=== PATIENT | male | born 1995 | race Caucasian/White ===

== ENCOUNTER 2018-10-07 20:26 | Inpatient (IN) | payer BC, OTHER ==
[2018-10-07 22:20] LABS: Amphetamine Screen,Urine Not Detected (NotDetected); Barbiturate Screen,Urine Not Detected (NotDetected); Benzodiazepines Screen,Urine Not Detected (NotDetected); Cocaine Screen,Urine Not Detected (NotDetected); Methadone Screen, Urine Not Detected (NotDetected); Opiate Screen,Urine Not Detected (NotDetected); Oxycodone Screen, Urine Not Detected (NotDetected); Phencyclidine Screen,Urine Not Detected (NotDetected); Tricyclic Antidepressant,Urine Not Detected (NotDetected); Urn Cannabinoid Scrn Detected (NotDetected)
--- NOTE | 2018-10-07 23:32 | ED ---
Psych HPI - General Chief Complaint: Psychiatric Symptoms Stated Complaint: Suicidal Time Seen by Provider: 10/07/18 21:05 Source: patient Mode of arrival: ambulatory - History of Present Illness Initial Comments: Patient is 23-year-old man with history of suicidal ideation and depressed mood who is brought for psychiatric evaluation after he had made suicidal statements. The patient admits to making statements indicating suicidality. States that this been going on for a long time getting worse recently. MD Complaint: suicidal ideation, feels depressed -: month(s) Associated Psychiatric Symptoms: depression, suicidal ideation History of same: Yes Quality: getting worse Improves With: none Worsens With: none If Self Harm: admits thoughts of self harm - Related Data Home Medications Medication Instructions Recorded Confirmed Naproxen Sod/Diphenhydramine 2 tab PO HS 10/07/18 10/07/18 [Aleve Pm Caplet] Allergies Allergy/AdvReac Type Severity Reaction Status Date / Time No Known Allergies Allergy Verified 10/07/18 21:45 Review of Systems ROS Statement: Those systems with pertinent positive or pertinent negative responses have been documented in the HPI. ROS Other: All systems not noted in ROS Statement are negative. Constitutional: Denies: fever, chills Respiratory: Denies: cough, dyspnea Cardiovascular: Denies: chest pain, palpitations Gastrointestinal: Denies: abdominal pain, vomiting, diarrhea Musculoskeletal: Denies: back pain Skin: Denies: rash Neurological: Denies: headache, weakness, numbness Psychiatric: Reports: depression, suicidal thoughts. Denies: auditory hallucinations, visual hallucinations, homicidal thoughts Past Medical History Past Medical History: No Reported History History of Any Multi-Drug Resistant Organisms: MRSA Date of last positivie culture/infection: uk MDRO Source:: [facility] Past Surgical History: Ear Surgery Past Psychological History: Depression Smoking Status: Never smoker Past Alcohol Use History: None Reported Past Drug Use History: None Reported General Exam Limitations: no limitations General appearance: alert, in no apparent distress Head exam: Present: atraumatic, normocephalic Eye exam: Present: normal appearance Respiratory exam: Present: normal lung sounds bilaterally. Absent: respiratory distress, wheezes, rales, rhonchi, stridor Cardiovascular Exam: Present: regular rate, normal rhythm, normal heart sounds. Absent: systolic murmur, diastolic murmur, rubs, gallop GI/Abdominal exam: Present: soft. Absent: distended, tenderness, guarding, rebound, rigid, mass Extremities exam: Present: normal inspection, normal capillary refill. Absent: pedal edema, calf tenderness Back exam: Present: normal inspection. Absent: CVA tenderness (R), CVA tenderness (L) Neurological exam: Present: alert Psychiatric exam: Present: depressed, suicidal ideation. Absent: agitated, anxious, manic, homicidal ideation Skin exam: Present: warm, dry, intact, normal color. Absent: rash Course Vital Signs 10/07/18 10/07/18 20:46 23:24 Temperature 98.6 F 98.3 F Pulse Rate 116 H 93 Respiratory 18 16 Rate Blood Pressure 127/75 123/62 O2 Sat by Pulse 98 97 Oximetry Medical Decision Making - Medical Decision Making Patient is seen by behavioral health and after staffing with the psychiatrist they will admit the patient for further evaluation and treatment. - Lab Data Lab Results 10/07/18 Range/Units 20:57 Urine Opiates Screen Not Detected (NotDetected) Ur Oxycodone Screen Not Detected (NotDetected) Urine Methadone Screen Not Detected (NotDetected) Ur Propoxyphene Screen Not Detected (NotDetected) Ur Barbiturates Screen Not Detected (NotDetected) U Tricyclic Antidepress Not Detected (NotDetected) Ur Phencyclidine Scrn Not Detected (NotDetected) Ur Amphetamines Screen Not Detected (NotDetected) U Methamphetamines Scrn Not Detected (NotDetected) U Benzodiazepines Scrn Not Detected (NotDetected) Urine Cocaine Screen Not Detected (NotDetected) U Marijuana (THC) Screen Detected H (NotDetected) - EKG Data -: EKG Interpreted by Md EKG shows normal: sinus rhythm, axis, intervals, QRS complexes, ST-T waves Rate: normal (Rate 84 bpm) Interpretation: normal EKG Disposition Clinical Impression: Suicidal ideation, Mood disorder Disposition: TRANSFER TO PSYCH HOSP/UNIT Condition: Serious Is patient prescribed a controlled substance at d/c from ED?: No
[2018-10-07] MEDS ORDERED: ACETAMINOPHEN TAB 325 MG TAB PO PRN (23:57)
[2018-10-08 00:35] VITALS: BMI 39.9
[2018-10-08] MEDS ORDERED: ZIPRASIDONE 20 MG VIAL IM PRN (01:00)
[2018-10-08] MEDS ORDERED: MAGNESIUM HYDROXIDE 2,400 MG/10 ML CUP PO PRN (01:00)
[2018-10-08] MEDS ORDERED: LORazepam 1 MG TAB PO PRN (01:00)
[2018-10-08] MEDS ORDERED: MAG HYDROX/AL HYDROX/SIMETH 30 ML CUP PO PRN (01:00)
[2018-10-08] MEDS: buPROPion XL 150 MG TAB.ER.24H PO SCH (09:48)
[2018-10-08 09:58] LABS: Basophils % (A) 0 %; Eosinophils # (A) 0.2 k/uL (0-0.7); Eosinophils % (A) 2 %; HCT 41.3 % (39.0-53.0); HGB 14.4 gm/dL (13.0-17.5); Lymphocytes # (A) 1.6 k/uL (1.0-4.8); Lymphocytes % (A) 20 %; MCH 28.9 pg (25.0-35.0); MCHC 34.7 g/dL (31.0-37.0); MCV 83.2 fL (80.0-100.0); Mean Platelet Volume 7.1; Monocytes # (A) 0.4 k/uL (0-1.0); Monocytes % (A) 5 %; Neutrophils # (A) 5.5 k/uL (1.3-7.7); Neutrophils % (A) 71 %; Platelet Count 248 k/uL (150-450); RBC 4.97 m/uL (4.30-5.90); RDW 14.4 % (11.5-15.5); WBC 7.7 k/uL (3.8-10.6)
[2018-10-08 10:12] LABS: ALT 50 U/L (21-72); AST 25 U/L (17-59); Albumin 4.4 g/dL (3.5-5.0); Alkaline Phosphatase 49 U/L (38-126); Anion Gap 7 mmol/L; Blood Urea Nitrogen 12 mg/dL (9-20); Calcium 9.7 mg/dL (8.4-10.2); Carbon Dioxide 31 mmol/L (22-30); Chloride 103 mmol/L (98-107); Cholesterol 165 mg/dL (<200); Glucose 72 mg/dL (74-99); HDL Cholesterol 62 mg/dL (40-60); LDL Cholesterol,Calculated 74 mg/dL (0-99); Potassium 4.2 mmol/L (3.5-5.1); Sodium 141 mmol/L (137-145); Total Bilirubin 0.8 mg/dL (0.2-1.3); Total Protein 7.1 g/dL (6.3-8.2); Triglycerides 144 mg/dL (<150)
--- NOTE | 2018-10-08 20:04 | P.HP ---
Psychiatric H&P - . H&P Date: 10/08/18 History & Physical: Allergies Allergy/AdvReac Type Severity Reaction Status Date / Time No Known Allergies Allergy Verified 10/08/18 00:10 Vital Signs Temp 97.5 F L 10/08/18 00:28 Pulse 93 10/08/18 00:28 Resp 16 10/08/18 00:28 BP 142/70 10/08/18 00:28 Pulse Ox 97 10/07/18 23:24 Intake & Output 10/08/18 10/08/18 10/09/18 06:59 18:59 06:59 Weight 136.078 kg Laboratory Last Values WBC 7.7 k/uL (3.8-10.6) 10/08/18 09:37 RBC 4.97 m/uL (4.30-5.90) 10/08/18 09:37 Hgb 14.4 gm/dL (13.0-17.5) 10/08/18 09:37 Hct 41.3 % (39.0-53.0) 10/08/18 09:37 MCV 83.2 fL (80.0-100.0) 10/08/18 09:37 MCH 28.9 pg (25.0-35.0) 10/08/18 09:37 MCHC 34.7 g/dL (31.0-37.0) 10/08/18 09:37 RDW 14.4 % (11.5-15.5) 10/08/18 09:37 Plt Count 248 k/uL (150-450) 10/08/18 09:37 Neutrophils % 71 % 10/08/18 09:37 Lymphocytes % 20 % 10/08/18 09:37 Monocytes % 5 % 10/08/18 09:37 Eosinophils % 2 % 10/08/18 09:37 Basophils % 0 % 10/08/18 09:37 Neutrophils # 5.5 k/uL (1.3-7.7) 10/08/18 09:37 Lymphocytes # 1.6 k/uL (1.0-4.8) 10/08/18 09:37 Monocytes # 0.4 k/uL (0-1.0) 10/08/18 09:37 Eosinophils # 0.2 k/uL (0-0.7) 10/08/18 09:37 Basophils # 0.0 k/uL (0-0.2) 10/08/18 09:37 Sodium 141 mmol/L (137-145) 10/08/18 09:37 Potassium 4.2 mmol/L (3.5-5.1) 10/08/18 09:37 Chloride 103 mmol/L (98-107) 10/08/18 09:37 Carbon Dioxide 31 mmol/L (22-30) H 10/08/18 09:37 Anion Gap 7 mmol/L 10/08/18 09:37 BUN 12 mg/dL (9-20) 10/08/18 09:37 Creatinine 0.81 mg/dL (0.66-1.25) 10/08/18 09:37 Est GFR (CKD-EPI)AfAm >90 (>60 ml/min/1.73 sqM) 10/08/18 09:37 Est GFR (CKD-EPI)NonAf >90 (>60 ml/min/1.73 sqM) 10/08/18 09:37 Glucose 72 mg/dL (74-99) L 10/08/18 09:[address] Glu mg/dL 97 10/08/18 09:37 Hemoglobin A1c 5.0 % (4.0-6.0) 10/08/18 09:37 Calcium 9.7 mg/dL (8.4-10.2) 10/08/18 09:37 Total Bilirubin 0.8 mg/dL (0.2-1.3) 10/08/18 09:37 AST 25 U/L (17-59) 10/08/18 09:37 ALT 50 U/L (21-72) 10/08/18 09:37 Alkaline Phosphatase 49 U/L (38-126) 10/08/18 09:37 Total Protein 7.1 g/dL (6.3-8.2) 10/08/18 09:37 Albumin 4.4 g/dL (3.5-5.0) 10/08/18 09:37 Triglycerides 144 mg/dL (<150) 10/08/18 09:37 Cholesterol 165 mg/dL (<200) 10/08/18 09:37 LDL Cholesterol, Calc 74 mg/dL (0-99) 10/08/18 09:37 HDL Cholesterol 62 mg/dL (40-60) H 10/08/18 09:37 TSH 1.680 mIU/L (0.465-4.680) 10/08/18 09:37 Urine Opiates Screen Not Detected (NotDetected) 10/07/18 20:57 Ur Oxycodone Screen Not Detected (NotDetected) 10/07/18 20:57 Urine Methadone Screen Not Detected (NotDetected) 10/07/18 20:57 Ur Propoxyphene Screen Not Detected (NotDetected) 10/07/18 20:57 Ur Barbiturates Screen Not Detected (NotDetected) 10/07/18 20:57 U Tricyclic Antidepress Not Detected (NotDetected) 10/07/18 20:57 Ur Phencyclidine Scrn Not Detected (NotDetected) 10/07/18 20:57 Ur Amphetamines Screen Not Detected (NotDetected) 10/07/18 20:57 U Methamphetamines Scrn Not Detected (NotDetected) 10/07/18 20:57 U Benzodiazepines Scrn Not Detected (NotDetected) 10/07/18 20:57 Urine Cocaine Screen Not Detected (NotDetected) 10/07/18 20:57 U Marijuana (THC) Screen Detected (NotDetected) H 10/07/18 20:57 10/08/18 20:03 Chief complaint Suicidal thoughts for two months. History of presenting illness Patient claims to have overdosed on 200 pills of night time aleve yesterday night. He also reports to have cut his arm with razor blade yesterday night, He has several superficial scratches on his left arm. . He claims to have texted his friend about it who then called police and was brought to the ER. He reports being non compliant with psychiatric treatment. He states his suicidal ideations worsen when ever his depression flares up. He states his recent stressors are his mother dying and feels sad. He reports his mother has pulmonary hypertension and is in need of bilateral lung transplantation. He says his mother will not be able to get lung transplantation before she dies. He reports to have given two weeks notice into his work and is planning to move in with his parents who live in [place], [place]. He reports feeling anxious and hopeless. He denies history of auditory or visual hallucinations., He denies paranoid ideations. He denies symptoms of tamara. Past psychiatric history Reports problems with depression, tendencies to overdose and self mutilate from the age of 17. He reports two psychiatric hospitalizations one in 2016 at [facility] and second one in 2017 at [facility] due to depression and suicidal ideations. He reports seeing therapist and the psychiatrist on and off at [facility] . He states it too expensive for him to maintain his appointments. He reports to have tried on various medications which did not help him and ther efore stopped taking them. He reports to have been prescribed Zoloft, Prozac, trazadone, abilify and effexor. Substance use history Reports occasional use of marijuana and alcohol. His last drink was yesterday night. Last use of marijuana was three weeks ago. Denies rehab treatment. Legal problems none reported. Family psychiatric treatment history denies Medical history None reported Social history Born in [place], raised by both parents. Denies history of abuse. Has one sister. Completed 12th grade. He is single, no children. Lives alone and worked at [employer]. Mental status exam 23 year old obese male. He appears older than his stated age in fair grooming and hygiene. He maintins good eye contact. No abnormal movements noted. His speech and thought process are linear and goal directed. His mood is reported as sad and affect constricted. He denies auditory or visual hallucinations. Denies paranoid ideations. The patient is alert and oriented 4 and in no apparent distress. Denies suicidal or homicidal ideation. insight and judgment are limited. Diagnosis Major depression recurrent moderate type. Plan 23-year-old male admitted through emergency department for suicidal ideations. He signed voluntary treatment consent. Medicine consult for history and physical examination psychosocial evaluation. After discussing benefits and risks of medications he has agreed to take wellbutrin and buspar Will start him on wellbutrin xl 150mg po qday for depression and buspar 5mg pot id for anxiety. Continue PRN medications for agitation and anxiety Monitor for symptoms will receive milieu therapy group therapy individual therapy occupational therapy recreational therapy and medication education. Discharge with outpatient follow-up. Treatment goals: Medication stabilization of depression Insight improvement and encourage treatment adherence,and development of better coping skills will continue to be free of suicide thoughts and behavior.
[2018-10-08] MEDS: busPIRone HCl 5 MG TAB PO SCH (22:44)
--- NOTE | 2018-10-08 23:28 | CONS ---
CONSULTATION DATE OF SERVICE: 10/08/2018. REASON FOR CONSULTATION: Medical management, requested by . CONSULTATION: This is a 23-year-old patient of Dr. Ag who has had depression since age of 17. He has had 2 prior hospitalizations. 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 The patient found out his mother is dying from pulmonary fibrosis. Lung transplantation will be available. He has given 2 weeks noticed to his work, plans to move to [place]. The patient has become more depressed and suicidal and decided to text his friend and got admitted to the hospital. Made some superficial cuts on his wrist. REVIEW OF SYSTEMS: CONSTITUTIONAL: None CARDIOVASCULAR: None. RESPIRATORY: None. CARDIOVASCULAR: None. GASTROINTESTINAL: None. GENITOURINARY: None. MUSCULOSKELETAL: None. DERMATOLOGICAL: Superficial cut on the wrist. HEMATOLOGIC, LYMPHATIC: None. PSYCHIATRY: As above. NEUROLOGICAL: None. PAST MEDICAL HISTORY: Depression. SURGICAL HISTORY: Ear surgery, tonsillectomy. SOCIAL HISTORY: Smokes marijuana occasionally. Alcohol occasionally. 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 Lives alone. FAMILY HISTORY: Mother has pulmonary hypertension. HOME MEDICATIONS: Naproxen. ALLERGIES: None. PHYSICAL EXAMINATION: Afebrile, pulse 93, respiration 16, blood pressure 142/70, pulse ox 97% on room air. GENERAL APPEARANCE: Well built. BMI 39.6, sitting up comfortable. EYES: Pupils equal. Conjunctivae normal. HEENT: External appearance of nose and ears normal. Oral cavity normal. NECK: JVD not raised. Mass not palpable. Respiratory effort normal. LUNGS: Clear. CARDIOVASCULAR: 1st and 2nd heart sounds normal. No edema. ABDOMEN: Soft, nontender. Liver and spleen not palpable. LYMPHATIC: No lymph nodes palpable in the neck and axilla. PSYCHIATRY: Alert and oriented x3. Mood and affect normal x3. NEUROLOGICAL: Alert and oriented x3. PSYCHIATRY: Mood and affect a bit low appearing. NEUROLOGICAL: Pupils equal. Cranial nerves grossly intact. Power and sensation grossly intact. INVESTIGATIONS: White count 7.7, hemoglobin 14.4, potassium 4.2. TSH is normal. Urine drug screen positive for marijuana. ASSESSMENT: 1. Obesity BMI 39.6. 2. Marijuana use occasional. 3. Superficial abrasions to the wrist from a sharp object. 4. Major depression, recurrent. PLAN: I had a very lengthy talk about lifestyle changes and measures. Of course he is concerned about his dying mother. I told him about several activities to do including mindfulness and type 2 health. Feels strong about himself. Total of about 30 minutes was spent with over 20-25 minutes of discussion. Thank you . ALEXYS / CHANELN: [id number] /
[2018-10-09] MEDS: buPROPion XL 150 MG TAB.ER.24H PO SCH (09:15)
[2018-10-09] MEDS: busPIRone HCl 5 MG TAB PO SCH ×3 (09:16→22:22)
--- NOTE | 2018-10-09 19:30 | P.PN ---
Progress Note - Text Progress Note Date: 10/09/18 IDENTIFICATION DATA: 23-year-old male admitted through emergency department for suicidal ideations. INTERVAL HISTORY: He reports feeling sad, hopeless. He rates his depression as 7/10, 10 being worst. He says he has always been depressed and does not feel comfortable being in the hospital and states it is waste of time and money being in the hospital. He reports ongoing suicidal ideations with out any active plan or intent. He says he would be better being at home rather than in the hospital. He says he is anxious to get back to his parents home and says they will watch him atleast for few days . He reports no motivation. He claims to have attended few groups today and claims to have taken a nap late in the afternoon. He reports good sleep and appetite. MENTAL STATUS EXAMINATION: Patient appears older than his stated age in fair and hygiene. maintains good eye contact. No abnormal movements noted. speech and thought process are slow and goal directed. mood is reported as sad, affect constricted . Denies current auditory and visual hallucinations. denies paranoid ideations. The patient is alert and oriented 4. Reports ongoing suicidal ideations with no active plan. Denies homicidal ideation. insight and judgment are limited. ASSESSMENT Major depression recurrent moderate type. PLAN: Will increase the dose of Wellbutrin to 300mg po daily. Continue buspar.
[2018-10-10] MEDS: busPIRone HCl 5 MG TAB PO SCH ×3 (08:35→20:11)
[2018-10-10] MEDS ORDERED: buPROPion XL 300 MG TAB.ER.24H PO SCH (09:00)
--- NOTE | 2018-10-10 14:46 | P.PN ---
Progress Note - Text Progress Note Date: 10/10/18 Interval History: Patient is a 23-year-old male who is admitted for suicidal thoughts, states that he has been taking overdoses of nighttime Advil since March and was hospitalized in April 2018 in [place] where he was placed on Abilify and Effexor. He states that after discharge he continued to feel suicidal stating to me that he has suicidal thoughts constantly and that even with adjustments in the doses of Abilify and Effexor he felt no better. Patient states that he's been on multiple trials of antidepressants in the past with no change in his symptoms. Patient states that he feels suicidal all the time, states that he does want to and states that being here in the hospital is a waste of time and money as he will not get any better. Upon further history the patient does also report periods where he does feel slightly better having more energy but is unable to report manic symptoms. Patient states that he has a supportive family at home, does not notice that his symptoms have worsened on antidepressants but reports no improvement in his symptoms with multiple trials of SSRIs, Effexor and now Wellbutrin. Mental Status: Appearance/Attitude: Patient is neatly and appropriately dressed, makes good eye contact and was cooperative. Behavior: Patient does not exhibit any psychomotor agitation or retardation. Speech/Language: Patient's speech is spontaneous of normal volume and rhythm and he is coherent. Thought Process: Patient is goal-directed there is no evidence of loose association or flight of ideas Thought Content: Patient denies any auditory or visual hallucinations no delusions or paranoid ideation were elicited. Patient reports that he continues to feel suicidal, feeling depressed does not describe feeling agitated and states that nothing really has made any difference. Patient states that he sees no sense and staying in the hospital because prior hospitalizations in different trials of medications have made little to no change in his symptoms. Suicidal/Homicidal Ideation: Patient reports having almost constant suicidal thoughts, states that he does want to but has no active plan or intent at this time. Patient denies any current homicidal ideation Sensorium/Cognition: Patient is alert and oriented to person, place, and time and his recent and remote memory are grossly intact. Mood/Affect: Patient's mood is depressed and his affect is blunted Insight/Judgment: Patient's insight and judgment are fair Assessment: Patient and I discussed multiple trials of medications that he has been on in the past his most recent being Abilify and Effexor, he states there is been little benefit and his depression and suicidal thoughts have not been altered at all. He states that therapy has also not been helpful. Patient states as the Abilify and Effexor were increased and the doses adjusted after his admission in April 2018 he saw no change in his mood or suicidal thoughts. Patient states that he's been off the medications for months when he ran out. Patient states that he has been taking overdoses of nighttime Advil on and off since March of last year. Patient reports that he doesn't see any benefit to being in the hospital. He was able to describe some periods of time in the past where he has had more energy and has felt slightly better but he says these are brief and not long lasting. Patient was not able to endorse full-blown manic symptoms. Plan: Patient and I discussed possibly changing his diagnosis to bipolar type II disorder and considering changing his medication strategy. We discussed that a trial of a mood stabilizer without an antidepressant specifically the more activating ones may be of benefit. Patient was agreeable to this plan and will discontinue his Wellbutrin and restart Abilify at 10 mg at bedtime. Patient and I discussed the need for inpatient hospitalization to see if this new treatment plan would be of benefit as the patient is verbalizing his wish to be discharged as he sees inpatient as a waste of time. Patient continues to require hospitalization due to his active suicidal thoughts and to stabilize his mood.
[2018-10-10] MEDS: ARIPiprazole 10 MG TAB PO SCH (20:11)
[2018-10-11] MEDS: busPIRone HCl 5 MG TAB PO SCH ×3 (08:21→21:33)
--- NOTE | 2018-10-11 14:10 | P.PN ---
Progress Note - Text Progress Note Date: 10/11/18 Interval History: Patient is a 23-year-old male who is admitted for suicidal ideation and depression. Patient was seen today and he reports that he continues to feel the same, stating that he didn't sleep well last night. He states that he continues to have suicidal thoughts but no plans to act while he is here. He states that when he is out of the hospital he has a mantra that he tells himself that he needs to and considers ways to do so. He states that he plans on living with his parents once he is discharged for a period of time and states that he has no regrets about his attempted suicides in the past. He states that there is nothing that prevents him from acting on his suicidal thoughts when he is outside of the hospital. He states that he regrets he's been unsuccessful in his prior overdose attempts. Patient continues to voice his opinion that being in the hospital is a waste of money and time and that it will not be of any help and that his bill is continuing to increase as his pain decreases and there will be any change in his symptoms. Mental Status: Appearance/Attitude: Patient is appropriately dressed and makes intermittent eye contact and was cooperative. Behavior: Patient does not display any psychomotor agitation or retardation. Speech/Language: Patient's speech is spontaneous of normal volume and rhythm and he is coherent Thought Process: Patient is goal-directed there is no evidence of loose association or flight of ideas Thought Content: Patient denies any auditory or visual hallucinations and no delusions or paranoid ideation were elicited. Patient continues to voice that he is feeling suicidal stating that he has no plans while he was here but that once he is out of the hospital he would act on them. Patient states that there is no reason for him to not act on his suicidal thoughts stating that he knows that his parents would be hurt by this. He has no regrets about acting on them. Patient does regret the fact that his prior suicide attempts by overdose of been unsuccessful. Patient continues to remain negative about his stay in the hospital feeling it is a waste of time and money and there will be any change. Suicidal/Homicidal Ideation: Patient states he continues to have suicidal ideation while he is here but has no plans to act while he is in the hospital, stating that one of 2 things will happen when he is discharged he will go and live with his parents or he'll go live with his parents and attempt suicide, patient denies any current homicidal ideation. Sensorium/Cognition: Patient is alert and oriented to person, place, and time and his recent and remote memory are grossly intact Mood/Affect: Patient's mood remains depressed and his affect is appropriate to his mood Insight/Judgment: Patient's insight and judgment are fair Assessment: Patient continues to voice his concern that this hospital stay as a waste of time and money, he sees that no change to his medications will make any change in his mood or suicidal thoughts. Patient states that he continues to have suicidal ideation but has no plans to act on them all he is in the hospital but states that once he is discharged he probably will go back to attempting to overdose and states that he regrets having been unsuccessful in the past. Shayan hawkins does attend groups and activities. He states that he didn't sleep well last night. He is not reporting any side effects from the Abilify. Plan: Patient will continue on Abilify 10 mg at bedtime and was encouraged to remain in the hospital to assess his response, patient was encouraged to have a more positive outlook however he continues to state that it is a waste of time to be in the hospital as well as money. Patient continues to require hospitalization to target his suicidal ideation and depression.
[2018-10-11] MEDS: ARIPiprazole 10 MG TAB PO SCH (21:34)
[2018-10-12] MEDS: busPIRone HCl 5 MG TAB PO SCH ×3 (08:10→21:00)
--- NOTE | 2018-10-12 12:51 | P.PN ---
Progress Note - Text Progress Note Date: 10/12/18 Interval History: Patient is a 23-year-old male who was seen today who reports that he continues to feel the same, continues to have suicidal thoughts but no current plan or intent to act on them. We discussed what his plans were after release from the hospital and he states that he will now move permanently up to live with his parents in [facility]. He states that he has weapons at home, and will have his father removed and secure them. Patient states that he wants to go live with his parents to assist in helping his mother who has pulmonary hypertension and is awaiting a transplant. Patient states that he feels the Abilify has not been of any benefit to date. Patient states that he had very few friends here and felt more isolative and has extended family on his father's side in [place] and feels that that would be a more supportive living environment for him. Patient states that he would get his medications to his parents to control and give to him. Mental Status: Appearance/Attitude: Patient is appropriately neatly dressed, makes eye contact and was cooperative. Behavior: Patient did not display any psychomotor agitation or retardation. Speech/Language: Patient's speech was spontaneous of normal volume and rhythm and he was coherent. Thought Process: Patient was goal-directed there is no evidence of loose associations or flight of ideas Thought Content: Patient denies any auditory or visual hallucination and no delusions or paranoid ideation were elicited. Patient states that he continues to feel depressed, states he continues to have suicidal thoughts but has no plans to act on them while in the hospital. Patient discussed his discharge plans today which are to live permanently with his parents, stating that it is a more supportive environment there with extended family members. Patient states that he will have his father remove all weapons and secure them that the patient currently has in his apartment. Patient states that he will also get his drugs to his parents to distribute to him. Patient stated that he will try to not act on his suicidal thoughts as he wants to assist in caring for his mother who has pulmonary hypertension and is waiting a lung transplant. Suicidal/Homicidal Ideation: Patient continues to report suicidal ideation with no current plan or intent to act and no current homicidal ideation Sensorium/Cognition: Patient is alert and oriented to person, place, and time and his recent and remote memory are grossly intact Mood/Affect: Patient's mood remains depressed and his affect is appropriate to his mood Insight/Judgment: Patient's insight and judgment are fair Assessment: Patient continues to report having chronic suicidal ideation but no current plan to act and states he continues to feel sad and depressed but is made different discharge plans planning now to live with his parents on a permanent basis, helping caring for his mother who is awaiting a lung transplant, he states that he will have his father secured the weapons that he owns at home as well as give his parents control over his medication. Patient states that he will try not to act on his suicidal thoughts as he wants to assist in caring for his mother. Patient states she is having any side effects from the medication and has been attending groups and activities. Plan: Patient will continue on Abilify 10 mg at bedtime to target his mood. Patient and I discussed his discharge plans and need to arrange aftercare in [facility] as well as to have his father secured weapons and I also suggested that the patient not spend a night here after his father returns to [place] with his belongings before his father to stay with the patient here and they both return to [place] together. We will tentatively plan for patient's discharge on Wednesday if appropriate after care can be arranged as well as his father can come to the area to assist the patient in his move.
[2018-10-12] MEDS: ARIPiprazole 10 MG TAB PO SCH (21:00)
[2018-10-12 21:34] LABS: Appearance,Urine Clear (Clear); Bilirubin,Urine Negative (Negative); Blood,Urine Negative (Negative); Color,Urine Light Yellow; Glucose,Urine (UA) Negative (Negative); Ketones,Urine Negative (Negative); Leukocyte Esterase,Urine Negative (Negative); Nitrite,Urine Negative (Negative); PH, Urine 6.5 (5.0-8.0); Protein,Urine Negative (Negative); Specific Gravity,Urine 1.018 (1.001-1.035); Urobilinogen,Urine <2.0 mg/dL (<2.0)
[2018-10-13 06:33] VITALS: RESP 16
[2018-10-13] MEDS: busPIRone HCl 5 MG TAB PO SCH ×3 (08:20→22:02)
--- NOTE | 2018-10-13 15:26 | P.PN ---
Progress Note - Text Progress Note Date: 10/13/18 Interval History: Patient is a 23-year-old male who was seen today who reports that his suicidal thoughts are slow but less intense, he states that they're still there and he is not sure why they are less intense today. Patient states that he spoken with his sister and father and his sister will stay with him after discharge while he waits his father coming down to help him move his things to [place]. Patient reports that he has been sleeping well and his appetite is good and reports no side effects from the medication. Patient feels positive about the move to [place] and living with his parents because he feels he will have a better support system. Mental Status: Appearance/Attitude: Patient is neatly and appropriately dressed and makes good eye contact and was cooperative. Behavior: Patient does not display any psychomotor agitation or retardation. Speech/Language: Patient's speech is spontaneous of normal volume and rhythm and he is coherent. Thought Process: Patient is goal-directed there is no evidence of loose association or flight of ideas Thought Content: Patient denies any auditory or visual hallucinations and no delusions or paranoid ideation were elicited. Patient states that he's feeling slightly better today be suicidal thoughts are less intense states he is uncertain why that is the case but states that he has plans to have his sister stay with him the first night he is out of the hospital and then he his sister and his father will move him to [place]. Patient is eating and sleeping well and reports no side effects. Suicidal/Homicidal Ideation: Patient states that the suicidal thoughts are less intense today although still bear with no plan or intent to act at this time and no current homicidal ideation Sensorium/Cognition: Patient is alert and oriented to person, place, and time and his recent and remote memory are grossly intact Mood/Affect: Patient's mood remains depressed and his affect appropriate to his mood Insight/Judgment: Patient's insight and judgment are fair Assessment: Patient states that his suicidal thoughts are less intense today he is uncertain if it's due to the medication or due to his making arrangements to return to live with his parents. Patient states that he has been sleeping and eating well and has been attending groups and activities. He states he has spoken to his sister will stay with him after he is discharged from the hospital for the first night while he awaits his father's assistance in moving to [place]. Patient reports no side effects from the medication. Plan: Patient continues on Abilify 10 mg at bedtime to target his mood, discussed plans for discharge tomorrow, patient will follow-up in [place] and we discussed the need for him to have someone stay with him once he is discharged the first night and he was agreeable to arrange this with family members.
[2018-10-13] MEDS: ARIPiprazole 10 MG TAB PO SCH (22:02)
[2018-10-14 06:29] VITALS: BP 120/81; PULSE 70; TEMP 98
[2018-10-14] MEDS: busPIRone HCl 5 MG TAB PO SCH (08:14)
--- NOTE | 2018-10-14 11:50 | P.DS ---
Providers Date of admission: 10/07/18 23:24 Expected date of discharge: 10/14/18 Attending physician: Elvia Balderas MD Consults: 10/07/18 23:57 Consult Physician Routine Consulting Provider: Brandon Quinteros Consult Reason/Comments: H&P for mental health consult Do you want consulting provider notified?: Yes, Notify in am Primary care physician: Ivan [facility] Hospital Course: Discharge Diagnosis: Bipolar disorder type II current episode depressed Reason for Admission: Patient is a 23-year-old male who is admitted after overdosing on 200 pills of Aleve the day prior to admission, patient had also superficially cut his left arm. He was brought to the emergency room by police after detecting a friend and telling his friend what he had done. Patient had been noncompliant with his psychiatric treatment at [facility] stating that he was unable to afford going to keep his appointments. Patient had also not been taking his medication as prescribed. Patient states that his suicidal thoughts worsen when his depression worsens. Patient reports being under stress recently, his mother has pulmonary hypertension and is awaiting a bilateral lung transplant. He reports most likely will not occur. Patient had plans prior to his admission to stop working locally and moved to [facility] to live with his parents. Patient has a history of depression with tendencies to take overdoses as well as self mutilate since the age of 17. He has 2 prior psychiatric hospitalizations one in 2016 and one in 2018. Patient states that no medications and no admissions to psychiatric hospitals have ever been beneficial or changed his symptoms. He states that he has chronic suicidal thoughts, stating that he always feels depressed. 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 Hospital Course: Patient was admitted on a voluntary basis, placed on routine observation in group and activity therapy were ordered. Patient was also ordered routine laboratory studies as well as a medical consultation was obtained. Patient was started on Wellbutrin at 150 mg a day increased to 300 mg a day, and continue BuSpar 5 mg 3 times a day. Patient continued to express suicidal thoughts, feeling depressed but stated that he had no intent to act and no suicidal plans while he was on the unit. When I met with the patient he and I had a long discussion regarding his response to antidepressants in the past, response to antidepressants being augmented with antipsychotics and he reported that there would be a brief period where he would feel better but has never completely been in remission. Patient is able to give a history of some hypomanic symptoms and so we decided to try Abilify on its own. Patient states that he had been on Abilify combined with Effexor in the past and noticed no improvement in his symptoms. Patient was started on Abilify 10 mg at bedtime and continued on his BuSpar and the Wellbutrin was discontinued. Patient was attending groups and activities and appeared brighter than last several days on the unit, he also stated to me that his suicidal thoughts had decreased in frequency and he continued to report that he had no intent to act or no plans. Patient and I discussed his plans to move to [place] to live with his parents, stating that he has more extended family and a better support system there. Patient states that he is aware that he needs to be compliant with treatment and his medications. Patient will move to [place] to live with his parents on discharge, the guns that he owns will be removed from his apartment and secured by his sister, patient will follow-up with counseling and psychiatric care in [place]. Patient felt that he had improved on the Abilify with a slight decrease in his depression, a decrease in his suicidal ideation which she states is of a chronic constant nature. Patient expressed no active suicidal plan or intent to act and states that his mother's illness is a deterrent for for him to not act on his thoughts. Patient stated that his prior admissions to hospitals of been a waste of time and money as he felt that there is no change in his symptoms while admitted. Patient reported no side effects from the Abilify. It was felt that the patient had reached his maximum benefit from an inpatient hospital stay and was ready for discharge. Allergies No Known Allergies Allergy (Verified 10/08/18 00:10) Home Medications Medication Instructions Recorded Confirmed Naproxen Sod/Diphenhydramine 2 tab PO HS 10/07/18 10/07/18 [Aleve Pm Caplet] Laboratory Last Values WBC 7.7 k/uL (3.8-10.6) 10/08/18 09:37 RBC 4.97 m/uL (4.30-5.90) 10/08/18 09:37 Hgb 14.4 gm/dL (13.0-17.5) 10/08/18 09:37 Hct 41.3 % (39.0-53.0) 10/08/18 09:37 MCV 83.2 fL (80.0-100.0) 10/08/18 09:37 MCH 28.9 pg (25.0-35.0) 10/08/18 09:37 MCHC 34.7 g/dL (31.0-37.0) 10/08/18 09:37 RDW 14.4 % (11.5-15.5) 10/08/18 09:37 Plt Count 248 k/uL (150-450) 10/08/18 09:37 Neutrophils % 71 % 10/08/18 09:37 Lymphocytes % 20 % 10/08/18 09:37 Monocytes % 5 % 10/08/18 09:37 Eosinophils % 2 % 10/08/18 09:37 Basophils % 0 % 10/08/18 09:37 Neutrophils # 5.5 k/uL (1.3-7.7) 10/08/18 09:37 Lymphocytes # 1.6 k/uL (1.0-4.8) 10/08/18 09:37 Monocytes # 0.4 k/uL (0-1.0) 10/08/18 09:37 Eosinophils # 0.2 k/uL (0-0.7) 10/08/18 09:37 Basophils # 0.0 k/uL (0-0.2) 10/08/18 09:37 Sodium 141 mmol/L (137-145) 10/08/18 09:37 Potassium 4.2 mmol/L (3.5-5.1) 10/08/18 09:37 Chloride 103 mmol/L (98-107) 10/08/18 09:37 Carbon Dioxide 31 mmol/L (22-30) H 10/08/18 09:37 Anion Gap 7 mmol/L 10/08/18 09:37 BUN 12 mg/dL (9-20) 10/08/18 09:37 Creatinine 0.81 mg/dL (0.66-1.25) 10/08/18 09:37 Est GFR (CKD-EPI)AfAm >90 (>60 ml/min/1.73 sqM) 10/08/18 09:37 Est GFR (CKD-EPI)NonAf >90 (>60 ml/min/1.73 sqM) 10/08/18 09:37 Glucose 72 mg/dL (74-99) L 10/08/18 09:[address] Glu mg/dL 97 10/08/18 09:37 Hemoglobin A1c 5.0 % (4.0-6.0) 10/08/18 09:37 Calcium 9.7 mg/dL (8.4-10.2) 10/08/18 09:37 Total Bilirubin 0.8 mg/dL (0.2-1.3) 10/08/18 09:37 AST 25 U/L (17-59) 10/08/18 09:37 ALT 50 U/L (21-72) 10/08/18 09:37 Alkaline Phosphatase 49 U/L (38-126) 10/08/18 09:37 Total Protein 7.1 g/dL (6.3-8.2) 10/08/18 09:37 Albumin 4.4 g/dL (3.5-5.0) 10/08/18 09:37 Triglycerides 144 mg/dL (<150) 10/08/18 09:37 Cholesterol 165 mg/dL (<200) 10/08/18 09:37 LDL Cholesterol, Calc 74 mg/dL (0-99) 10/08/18 09:37 HDL Cholesterol 62 mg/dL (40-60) H 10/08/18 09:37 TSH 1.680 mIU/L (0.465-4.680) 10/08/18 09:37 Urine Color Light Yellow 10/12/18 18:46 Urine Appearance Clear (Clear) 10/12/18 18:46 Urine pH 6.5 (5.0-8.0) 10/12/18 18:46 Ur Specific [place] 1.018 (1.001-1.035) 10/12/18 18:46 Urine Protein Negative (Negative) 10/12/18 18:46 Urine Glucose (UA) Negative (Negative) 10/12/18 18:46 Urine Ketones Negative (Negative) 10/12/18 18:46 Urine Blood Negative (Negative) 10/12/18 18:46 Urine Nitrite Negative (Negative) 10/12/18 18:46 Urine Bilirubin Negative (Negative) 10/12/18 18:46 Urine Urobilinogen <2.0 mg/dL (<2.0) 10/12/18 18:46 Ur Leukocyte Esterase Negative (Negative) 10/12/18 18:46 Urine Opiates Screen Not Detected (NotDetected) 10/07/18 20:57 Ur Oxycodone Screen Not Detected (NotDetected) 10/07/18 20:57 Urine Methadone Screen Not Detected (NotDetected) 10/07/18 20:57 Ur Propoxyphene Screen Not Detected (NotDetected) 10/07/18 20:57 Ur Barbiturates Screen Not Detected (NotDetected) 10/07/18 20:57 U Tricyclic Antidepress Not Detected (NotDetected) 10/07/18 20:57 Ur Phencyclidine Scrn Not Detected (NotDetected) 10/07/18 20:57 Ur Amphetamines Screen Not Detected (NotDetected) 10/07/18 20:57 U Methamphetamines Scrn Not Detected (NotDetected) 10/07/18 20:57 U Benzodiazepines Scrn Not Detected (NotDetected) 10/07/18 20:57 Urine Cocaine Screen Not Detected (NotDetected) 10/07/18 20:57 U Marijuana (THC) Screen Detected (NotDetected) H 10/07/18 20:57 Discharge Mental Status: Appearance/Attitude: Patient is neatly and appropriately dressed, makes eye contact and is cooperative. Behavior: Patient does not exhibit any psychomotor agitation or retardation. Speech/Language: Patient's speech is spontaneous and normal volume and rhythm and he is coherent Thought Process: Patient is goal-directed there is no evidence of loose association or flight of ideas Thought Content: Patient denies any auditory visual hallucinations no delusions or paranoid ideation were elicited. Patient I had a long talk regarding his negative outlook, his need to follow-up with counseling after discharge, we discussed exercise and better nutrition. Patient states that he is more hopeful and returning to live with his parents as he will have more supportive living situation, he states that his appetite is good and he has been sleeping fairly well. Suicidal/Homicidal Ideation: Patient states that his suicidal thoughts are less intense and frequent and he denies any current plans or intent to act and no current homicidal ideation Sensorium/Cognition: Patient is alert and oriented to person, place, and time and his recent and remote memory are grossly intact Mood/Affect: Patient's mood is less depressed and his affect is appropriate to his mood Insight/Judgment: Patient's insight and judgment are fair Discharge Plan: Patient will be discharged and will be living with his parents in [facility], his sister will remove the guns from his home and secure them. Patient will continue on Abilify 10 mg at bedtime and BuSpar 5 mg 3 times a day and will be given prescriptions for those medications. Patient will also follow up at [facility] in the [facility] [place] and his first appointment is on October 28. Patient was encouraged to be compliant with medication and appointments and avoid all alcohol and drugs. Patient Condition at Discharge: Stable Plan - Discharge Summary Discharge Rx Participant: No New Discharge Prescriptions: New ARIPiprazole [Abilify] 10 mg PO HS #14 tab busPIRone HCl [Buspar] 5 mg PO TID #42 tab Discontinued Naproxen Sod/Diphenhydramine [Aleve Pm Caplet] 2 tab PO HS Discharge Medication List ARIPiprazole [Abilify] 10 mg PO HS #14 tab 10/14/18 [Rx] busPIRone HCl [Buspar] 5 mg PO TID #42 tab 10/14/18 [Rx] Follow up [facility]Ref[facility]18 2:30 pm (Intake) Ivan Ag DO [Primary Care Provider] - 1 Week Patient Instructions/Handouts: Depression (DC), Suicide Prevention (DC) Activity/Diet/Wound Care/Special Instructions: Activity and diet as tolerated. NO guns or weapons in the home. REFRAIN from alcohol and drugs not prescribed by your physician. Attend all follow up appointments as scheduled. Take all medications as prescribed. If in need of medication refills, please go to your primary care physician, or to your out patient psychiatric provider. If in crisis, please call , or go to the nearest ER. Discharge Disposition: HOME SELF-CARE
== END 2018-10-14 12:10 | disposition home or self-care (01) | DRG 918 ==
LOC: EC 20:26 → 3MHU 23:24
PROVIDERS: ADMIT Psychiatry & Neurology Psychiatry; ATTEND Psychiatry & Neurology Psychiatry
DX: T39.312A Poisoning by propionic acid derivatives, intentional self-harm, initial encounter (principal); F31.81 Bipolar II disorder; R45.851 Suicidal ideations; F41.9 Anxiety disorder, unspecified; S61.512A Laceration without foreign body of left wrist, initial encounter; X78.9XXA Intentional self-harm by unspecified sharp object, initial encounter; E66.9 Obesity, unspecified; Z86.14 Personal history of Methicillin resistant Staphylococcus aureus infection; Z68.39 Body mass index [BMI] 39.0-39.9, adult; Z79.899 Other long term (current) drug therapy; Z91.19 Patient's noncompliance with other medical treatment and regimen; Z91.5 Personal history of self-harm
CPT/HCPCS: 80053; 80061; 80306; 81003; 83036; 84443; 85025; 93005; 99285